=== PATIENT | male | born 1945 | race Caucasian/White ===

== ENCOUNTER → 2024-12-02 12:18 | Outpatient (CLI) | payer MEDICARE, OTHER, SELFPAY ==
[2024-12-02 14:31] LABS: Prostate Specific Antigen > 1000 ng/mL (0.10-4.00)
== END ==
LOC: LAB 12:22
PROVIDERS: Urology; PCP Family Medicine; Referring Provider Family Medicine; Visit Provider Family Medicine
DX: R97.20 Elevated prostate specific antigen [PSA] (principal)
CPT/HCPCS: 36415; 84153